=== PATIENT | female | born 1995 | race Hispanic/Latino ===

== ENCOUNTER 2023-04-11 14:30 | Emergency (ER) | payer OTHER ==
[~2023-04-11] VITALS: Ht 167.6 cm; Wt 81.6 kg
[2023-04-11 17:27] VITALS: BP 160/81; PULSE 67; RESP 18; O2SAT 98
[2023-04-11] MEDS ORDERED: HYDROXYZINE 25 MG TABLET PO ONE (17:30)
[2023-04-11] MEDS ORDERED: IBUPROFEN 400 MG TABLET PO ONE (17:30)
[2023-04-11] MEDS ORDERED: DEXAMETHASONE SOD PHOSPHATE 4 MG/ML 1ML VIAL IV SCH (17:30)
[2023-04-11] MEDS ORDERED: NAPR-1023 PO (17:44)
[2023-04-11] MEDS ORDERED: HYDR-3421 PO (17:44)
[2023-04-11] MEDS ORDERED: MOXIOS OD (17:44)
[2023-04-11] MEDS ORDERED: METH4TAB3 PO (17:44)
[2023-04-11] MEDS ORDERED: CLIN-141 PO (17:44)
== END 2023-04-11 18:29 | disposition home or self-care (01) ==
LOC: EDH 14:30
DX: T78.49XA Other allergy, initial encounter (principal); L03.213 Periorbital cellulitis; X58.XXXA Exposure to other specified factors, initial encounter; J45.909 Unspecified asthma, uncomplicated; Z79.899 Other long term (current) drug therapy
CPT/HCPCS: 99283; 96374; J1100